=== PATIENT | female | born 1960 | race Caucasian/White ===

== ENCOUNTER 2022-09-10 04:13 | Day surgery (SDC) | payer OTHER ==
[2022-09-08 12:25] VITALS: BMI 41.9
[2022-09-10] MEDS ORDERED: DEXAMETHASONE SOD PHOSPHATE 10 MG/1 ML VIAL ONE (08:35)
[2022-09-10] MEDS ORDERED: ROPIVACAINE HCL 0.5% 30ML VIAL ONE (08:35)
[2022-09-10] MEDS ORDERED: MIDAZOLAM HCL 2 MG/2 ML SINGLE DOSE VIAL ONE (08:36)
[2022-09-10] MEDS ORDERED: PROPOFOL 20 ML ONE (09:06)
[2022-09-10] MEDS ORDERED: ceFAZolin SODIUM 1 GM VIAL IVPB ONE (09:36)
[2022-09-10] MEDS ORDERED: oxyCODONE HCL 5 MG TABLET PO PRN (11:19)
[2022-09-10] MEDS ORDERED: ONDANSETRON 4 MG/2 ML VIAL IVPUSH PRN (11:19)
[2022-09-10 13:14] VITALS: RESP 16
[2022-09-10 13:43] VITALS: BP 116/55; PULSE 76; TEMP 98
== END 2022-09-10 14:00 | disposition home or self-care (01) ==
LOC: JASU-SURG 04:13
PROVIDERS: ATTEND Orthopaedic Surgery
PROC: 0RNJ4ZZ Release Right Shoulder Joint, Percutaneous Endoscopic Approach (ICD-10-PCS; principal; 2022-09-10 09:00)
PROC: 0LQ14ZZ Repair Right Shoulder Tendon, Percutaneous Endoscopic Approach (ICD-10-PCS; 2022-09-10 09:00)
DX: M75.41 Impingement syndrome of right shoulder (principal); M75.101 Unspecified rotator cuff tear or rupture of right shoulder, not specified as traumatic
CPT/HCPCS: 82962; 94760; C1713; J1100